=== PATIENT | female | born 1970 | race Caucasian/White ===

== ENCOUNTER 2020-11-14 14:09 | Emergency (ER) | payer BC ==
[2020-11-14 14:22] VITALS: BP 133/93; PULSE 73; TEMP 98.2; BMI 27.7
[2020-11-14] MEDS ORDERED: KETOROLAC TROMETHAMINE 30 MG/1 ML VIAL IM ONE (14:58)
[2020-11-14] MEDS ORDERED: diazePAM 2 MG TABLET PO ONE (14:58)
[2020-11-14] MEDS ORDERED: KETOROLAC TROMETHAMINE 30 MG/1 ML VIAL ONE (15:02)
[2020-11-14] MEDS ORDERED: diazePAM 2 MG TABLET ONE (15:02)
== END 2020-11-14 15:52 | disposition home or self-care (01) ==
LOC: JERFT 14:09
PROC: 3E0233Z Introduction of Anti-inflammatory into Muscle, Percutaneous Approach (ICD-10-PCS; principal; 2020-11-14)
DX: M54.12 Radiculopathy, cervical region (principal)
CPT/HCPCS: 99284-25

== ENCOUNTER 2020-11-22 10:35 | Emergency (ER) | payer BC ==
[2020-11-22 10:53] VITALS: TEMP 97.9; BMI 27.7
[2020-11-22] MEDS ORDERED: KETOROLAC TROMETHAMINE 30 MG/1 ML VIAL IM ONE (11:27)
[2020-11-22] MEDS ORDERED: ACETAMINOPHEN 325 MG TABLET (FP) PO ONE (11:28)
[2020-11-22] MEDS ORDERED: LIDOCAINE 5% TOPICAL PATCH TP ONE (11:28)
[2020-11-22] MEDS ORDERED: diazePAM 5 MG TABLET PO ONE (11:28)
[2020-11-22] MEDS ORDERED: diazePAM 5 MG TABLET ONE (11:37)
[2020-11-22] MEDS ORDERED: KETOROLAC TROMETHAMINE 30 MG/1 ML VIAL ONE (11:37)
[2020-11-22] MEDS ORDERED: LIDOCAINE 5% TOPICAL PATCH ONE (11:37)
[2020-11-22] MEDS ORDERED: ACETAMINOPHEN 325 MG TABLET (FP) ONE (11:37)
[2020-11-22 12:55] VITALS: BP 122/87; PULSE 86
[2020-11-22] MEDS ORDERED: LIDOCAINE PATCH REMOVAL MC SCH (22:00)
== END 2020-11-22 12:55 | disposition home or self-care (01) ==
LOC: JER 10:35
PROC: 3E0233Z Introduction of Anti-inflammatory into Muscle, Percutaneous Approach (ICD-10-PCS; principal; 2020-11-22)
DX: M54.12 Radiculopathy, cervical region (principal)
CPT/HCPCS: 99284-25